=== PATIENT | male | born 1995 | race African-American/Black ===

== ENCOUNTER 2017-01-08 15:18 | Emergency (ER) | payer SELFPAY ==
[~2017-01-08] VITALS: Ht 180.3 cm; Wt 68.4 kg
[2017-01-08 16:00] LABS: ADD MIUA? NO; BILIRUBIN NEGATIVE; BLOOD NEGATIVE; COLOR YELLOW ((YELLOW)); GLUCOSE (STRIP) NEGATIVE; KETONES NEGATIVE; LEUKOCYTES NEGATIVE; NITRITE NEGATIVE; PROTEIN (STRIP) NEGATIVE; SPECIFIC GRAVITY 1.014 (1.000-1.030); UCUL ADDED? NO
[2017-01-08 17:09] VITALS: BP 119/67
[2017-01-09 12:42] LABS: CHLAMYDIA TRACHOMATIS NEGATIVE; NEISSERIA GONORRHOEAE NEGATIVE
== END 2017-01-08 17:10 | disposition home or self-care (01) ==
LOC: EME 15:18 → EXP 15:18
PROVIDERS: Nurse Practitioner Family
DX: R59.0 Localized enlarged lymph nodes (principal); F17.200 Nicotine dependence, unspecified, uncomplicated
CPT/HCPCS: 81003; 87491; 87591; 99281; 99284; J0696

== ENCOUNTER 2017-05-27 20:21 | Emergency (ER) | payer SELFPAY ==
[~2017-05-27] VITALS: Ht 177.8 cm; Wt 69.2 kg
[2017-05-27] MEDS ORDERED: PERCOCET 5/31 TABLET PO (23:12)
[2017-05-27] MEDS ORDERED: FLEXERIL10 MG PO (23:12)
[2017-05-27 23:23] VITALS: BP 125/70
== END 2017-05-27 23:24 | disposition home or self-care (01) ==
LOC: EME 20:21
DX: S70.02XA Contusion of left hip, initial encounter (principal); S39.012A Strain of muscle, fascia and tendon of lower back, initial encounter; W01.0XXA Fall on same level from slipping, tripping and stumbling without subsequent striking against object, initial encounter; F17.200 Nicotine dependence, unspecified, uncomplicated; Z88.0 Allergy status to penicillin
CPT/HCPCS: 73502; 99281; 99285

== ENCOUNTER 2017-09-07 20:46 | Emergency (ER) | payer SELFPAY ==
[~2017-09-07] VITALS: Ht 180.3 cm; Wt 69.1 kg
[~2017-09-07 20:46] MED LIST: FLEXERIL10 MG PO; PERCOCET 5/31 TABLET PO
[2017-09-07 20:48] VITALS: BP 120/78
[2017-09-07] MEDS ORDERED: VIBRAMYCIN100 MG PO (22:34)
== END 2017-09-07 23:12 | disposition home or self-care (01) ==
LOC: EME 20:46
DX: L01.00 Impetigo, unspecified (principal); L73.9 Follicular disorder, unspecified; F17.200 Nicotine dependence, unspecified, uncomplicated; Z88.0 Allergy status to penicillin
CPT/HCPCS: 99281; 99284

== ENCOUNTER 2017-11-15 19:24 | Emergency (ER) | payer OTHER ==
[~2017-11-15] VITALS: Ht 177.8 cm; Wt 69.3 kg
[~2017-11-15 19:24] MED LIST changes: +VIBRAMYCIN100 MG PO
[2017-11-15] MEDS ORDERED: NAPROSYN500 MG PO (21:17)
[2017-11-15 21:28] VITALS: BP 118/68
== END 2017-11-15 21:37 | disposition home or self-care (01) ==
LOC: EME 19:24
DX: S39.012A Strain of muscle, fascia and tendon of lower back, initial encounter (principal); S30.0XXA Contusion of lower back and pelvis, initial encounter; W10.9XXA Fall (on) (from) unspecified stairs and steps, initial encounter; F17.200 Nicotine dependence, unspecified, uncomplicated
CPT/HCPCS: 72100; 72220; 99281; 99284